=== PATIENT | female | born 1975 | race Caucasian/White ===

== ENCOUNTER 2017-05-24 21:00 | Emergency (ER) | payer BC ==
--- NOTE | ~2017-05-24 | ER ---
PATIENT'S NAME: SUSY FLORES [facility] AGE: 42 Y [address] ROOM: [place] [address] LOCATION: ED ADMIT DATE: 05/24/2017 ER/Outpatient Report DISCHARGE DATE: 05/24/2017 FAMILY PHYSICIAN: Kem Bolivar MD ATTENDING PHYSICIAN: Harsh Parekh TIME SEEN: 2120 hours. HISTORY OF PRESENT ILLNESS: The patient is a 42-year-old female who presents with her . The patient had shoulder surgery today, done by Dr. Marvin. The patient was sent home on Nucynta and Valium for pain. She presents complaining of nausea and vomiting. The patient states she has not been able to keep anything down for the last 3 hours. ALLERGIES: HAS NO MEDICINAL ALLERGIES. CURRENT MEDICATIONS: 1. Nucynta. 2. Valium. PREVIOUS MEDICAL HISTORY: Migraines, hyperlipidemia, and reflux. SURGERIES: She has had previous appendectomy, , left knee scope, and a recent surgery on her right shoulder. SOCIAL HISTORY: She is a nonsmoker. Alcohol rarely. . REVIEW OF SYSTEMS: GENERAL: No fever or chills. HEAD AND EENT: No complaints of headache or sore throat. RESPIRATORY: Denies any shortness of breath or cough. GASTROINTESTINAL: Includes nausea and vomiting post surgery. PHYSICAL EXAMINATION: VITAL SIGNS: Blood pressure 144/87, her temperature is 98.3, respiratory rate 16, pulse 86, and her O2 saturations 94%. GENERAL APPEARANCE: Alert. Did not appear to be in any obvious distress. HEAD AND EENT: Her sclerae were clear. Buccal membranes moist. LUNGS: Sounded clear. PATIENT'S NAME: SUSY FLORES [facility] AGE: 42 Y [address] ROOM: [place] [address] LOCATION: ED ADMIT DATE: 05/24/2017 ER/Outpatient Report DISCHARGE DATE: 05/24/2017 FAMILY PHYSICIAN: Kem Bolivar MD ATTENDING PHYSICIAN: Harsh Parekh ABDOMEN: Soft, nontender. ASSESSMENT: Postoperative nausea and vomiting. PLAN: Phenergan 25 mg IM. She was given a script for Zofran 4 mg to take every 6 hours. Clear liquids tonight. Follow up tomorrow if symptoms do not continue to improve. The patient verbalized understanding of her take-home instructions. DONAVAN SHOOK FOR MD TANJA VALERO/stewart /[id number] d: 05/24/17 2329 t: 06/06/17 1215, OUTPATIENT REPORT
== END 2017-05-24 22:05 | disposition disaster alternative care site (69) ==
LOC: GMED 21:00
DX: K91.89 Other postprocedural complications and disorders of digestive system (principal); R11.2 Nausea with vomiting, unspecified; E78.5 Hyperlipidemia, unspecified; K21.9 Gastro-esophageal reflux disease without esophagitis; Z90.49 Acquired absence of other specified parts of digestive tract; Z98.890 Other specified postprocedural states; Z79.1 Long term (current) use of non-steroidal anti-inflammatories (NSAID); Z79.891 Long term (current) use of opiate analgesic; Z79.899 Other long term (current) drug therapy
CPT/HCPCS: J2550